=== PATIENT | female | born 2000 | race Two or more races ===

== ENCOUNTER 2024-03-20 10:32 | Outpatient (CLI) | payer OTHER | END 2024-03-20 10:37 | disposition home or self-care (01) | LOC: PRENATAL 10:32 | PROVIDERS: ATTEND Obstetrics & Gynecology Maternal & Fetal Medicine | DX: Z76.1 Encounter for health supervision and care of foundling (principal) ==

== ENCOUNTER 2024-05-06 07:58 | Outpatient (CLI) | payer OTHER | END 2024-05-06 07:59 | disposition home or self-care (01) | LOC: PRENATAL 07:58 | PROVIDERS: ATTEND Obstetrics & Gynecology Maternal & Fetal Medicine | DX: O44.00 Complete placenta previa NOS or without hemorrhage, unspecified trimester (principal); Z3A.21 21 weeks gestation of pregnancy ==

== ENCOUNTER 2024-07-15 09:03 | Outpatient (CLI) | payer OTHER | END 2024-07-15 09:07 | disposition home or self-care (01) | LOC: PRENATAL 09:03 | PROVIDERS: ATTEND Obstetrics & Gynecology Maternal & Fetal Medicine | DX: O26.849 Uterine size-date discrepancy, unspecified trimester (principal); O36.8199 Decreased fetal movements, unspecified trimester, other fetus; O36.5990 Maternal care for other known or suspected poor fetal growth, unspecified trimester, not applicable or unspecified; Z3A.31 31 weeks gestation of pregnancy ==

== ENCOUNTER 2024-07-21 09:38 | Outpatient (CLI) | payer OTHER ==
[2024-07-21] MEDS ORDERED: ADULT LOW DOSE81 M1 PO (13:35)
[2024-07-21] MEDS ORDERED: PRENATA CHEWAB1 EACH PO (13:35)
== END 2024-07-21 09:39 | disposition home or self-care (01) ==
LOC: PRENATAL 09:38
PROVIDERS: ATTEND Obstetrics & Gynecology Maternal & Fetal Medicine
DX: O36.5990 Maternal care for other known or suspected poor fetal growth, unspecified trimester, not applicable or unspecified (principal); O36.8199 Decreased fetal movements, unspecified trimester, other fetus; Z3A.33 33 weeks gestation of pregnancy

== ENCOUNTER 2024-07-21 13:27 | Inpatient (IN) | payer OTHER ==
[~2024-07-21] VITALS: Ht 149.9 cm; Wt 79.8 kg
[2024-07-21 12:39] VITALS: BP 127/84
[2024-07-21] MEDS ORDERED: ADULT LOW DOSE81 M1 PO (13:35)
[2024-07-21] MEDS ORDERED: PRENATA CHEWAB1 EACH PO (13:35)
[2024-07-21] MEDS ORDERED: BETAMETHASONE ACETATE,SOD PHOS 30 MG/5 ML ML ONE (13:43)
[2024-07-21] MEDS ORDERED: BETAMETHASONE ACETATE,SOD PHOS 30 MG/5 ML ML IM ONE (14:15)
[2024-07-21] MEDS ORDERED: RINGERS SOLUTION,LACTATED 1,000 ML IV SCH (14:30)
[2024-07-21 15:05] LABS: HEMATOCRIT 35.8 % (36.0-45.00); HEMOGLOBIN 12.2 g/dL (12.0-15.00); MEAN CELL VOLUME 85.9 fL (80.00-100.00); MEAN CORPUSCULAR HEMOGLOBIN 29.2 pg (27.00-32.0); PLATELET COUNT 158 K/uL (150-450); RED BLOOD COUNT 4.17 M/uL (4.00-6.00); RED CELL DISTRIBUTION WIDTH 13.1 % (11.5-14.5)
[2024-07-21 15:19] VITALS: BP 133/84
[2024-07-21 15:24] LABS: INR 0.94; PARTIAL THROMBOPLASTIN TIME 29.3 SECONDS (22.0-34.0); PROTHROMBIN TIME 10.3 SECONDS (9.0-11.5)
[2024-07-21 15:32] LABS: ALBUMIN 2.5 gm/dL (3.4-5.0); BILIRUBIN TOTAL 0.37 mg/dL (0.3-1.2); CALCIUM 8.4 mg/dL (8.5-10.1); CREATININE SERUM 0.75 mg/dL (0.55-1.02); GFR 93.41; GLOBULINA 3.3 G/DL (2.4-3.5); POTASSIUM 3.76 mEq/L (3.5-5.1); TOTAL PROTEIN 5.8 gm/dL (6.4-8.2)
[2024-07-21 16:36] LABS: PH,URINE 7.5 (5.0-8.0); URINE APPEARANCE Clear; URINE BILIRRUBIN Negative (NEGATIVE); URINE BLOOD Negative; URINE COLOR Yellow; URINE GLUCOSE Negative (NEGATIVE); URINE KETONE Negative (NEGATIVE); URINE LEUKOCYTE Large; URINE NITRATE Negative; URINE PROTEIN Negative (NEGATIVE)
[2024-07-21 16:40] LABS: URINE BACTERIA 1023.1 uL (0.0-1933); URINE EPITHELIAL CELLS 18.8 uL (0.0-38.8); URINE RBC 2.6 uL (0.0-20.8); URINE WBC 23.7 uL (0.0-23.2)
[2024-07-21 19:27] VITALS: BP 132/87
[2024-07-21 23:10] VITALS: BP 124/80
[2024-07-22 03:24] VITALS: BP 122/77
[2024-07-22 06:08] VITALS: BP 112/71; O2SAT 99
[2024-07-22 11:20] VITALS: BP 125/85
[2024-07-22] MEDS ORDERED: BETAMETHASONE ACETATE,SOD PHOS 30 MG/5 ML ML IM ONE (14:15)
[2024-07-22 15:17] VITALS: BP 124/87
[2024-07-22 19:25] VITALS: BP 132/85
[2024-07-22 23:16] VITALS: BP 110/71; O2SAT 98
[2024-07-22] MEDS ORDERED: CEFAZOLIN SODIUM 1,000 MG VIAL ONE (23:45)
[2024-07-23] MEDS ORDERED: CEFAZOLIN SODIUM 1,000 MG VIAL IV SCH (01:00)
[2024-07-23 03:40] VITALS: BP 113/72
[2024-07-23 06:20] VITALS: BP 115/69; O2SAT 98
[2024-07-23 11:30] VITALS: BP 130/85; O2SAT 97
== END 2024-07-23 12:37 | disposition home or self-care (01) | DRG 833 ==
LOC: LDR 13:27
PROVIDERS: ADMIT Obstetrics & Gynecology; ATTEND Obstetrics & Gynecology
PROC: 4A1HXCZ Monitoring of Products of Conception, Cardiac Rate, External Approach (ICD-10-PCS; principal; 2024-07-21)
PROC: BY4FZZZ Ultrasonography of Third Trimester, Single Fetus (ICD-10-PCS; 2024-07-23)
PROC: BY47ZZZ Ultrasonography of Fetal Umbilical Cord (ICD-10-PCS; 2024-07-23)
DX: O36.5930 Maternal care for other known or suspected poor fetal growth, third trimester, not applicable or unspecified (principal); O36.8130 Decreased fetal movements, third trimester, not applicable or unspecified; Z3A.33 33 weeks gestation of pregnancy

== ENCOUNTER 2024-07-27 08:43 | Outpatient (CLI) | payer OTHER ==
[~2024-07-27 08:43] MED LIST: ADULT LOW DOSE81 M1 PO; PRENATA CHEWAB1 EACH PO
== END 2024-07-27 08:44 | disposition home or self-care (01) ==
LOC: PRENATAL 08:43
PROVIDERS: ATTEND Obstetrics & Gynecology Maternal & Fetal Medicine
DX: O26.849 Uterine size-date discrepancy, unspecified trimester (principal); O36.5990 Maternal care for other known or suspected poor fetal growth, unspecified trimester, not applicable or unspecified; O36.8199 Decreased fetal movements, unspecified trimester, other fetus; Z3A.31 31 weeks gestation of pregnancy

== ENCOUNTER 2024-07-27 12:10 | Inpatient (IN) | payer OTHER ==
[~2024-07-27] VITALS: Ht 149.9 cm; Wt 79.8 kg
[2024-07-27 11:47] VITALS: BP 145/93
[2024-07-27] MEDS ORDERED: RINGERS SOLUTION,LACTATED 1,000 ML IV SCH (12:45)
[2024-07-27 12:55] LABS: URINE APPEARANCE Cloudy; URINE BILIRRUBIN Negative (NEGATIVE); URINE BLOOD NHT; URINE COLOR Yellow; URINE GLUCOSE Negative (NEGATIVE); URINE KETONE Negative (NEGATIVE); URINE LEUKOCYTE Large; URINE NITRATE Negative; URINE PROTEIN Trace (NEGATIVE); URINE UROBILINOGEN 0.2 E.U./dl
[2024-07-27 12:56] LABS: URINE BACTERIA 8094.1 uL (0.0-1933); URINE EPITHELIAL CELLS 180.8 uL (0.0-38.8); URINE RBC 7.5 uL (0.0-20.8); URINE WBC 422.2 uL (0.0-23.2)
[2024-07-27 13:00] LABS: HEMATOCRIT 37.1 % (36.0-45.00); HEMOGLOBIN 12.7 g/dL (12.0-15.00); MEAN CELL VOLUME 86.3 fL (80.00-100.00); MEAN CORPUSCULAR HEMOGLOBIN 29.5 pg (27.00-32.0); MEAN CORPUSCULAR HGB CONC 34.2 g/dl (32.0-36.0); PLATELET COUNT 153 K/uL (150-450); RED CELL DISTRIBUTION WIDTH 13.7 % (11.5-14.5)
[2024-07-27 13:15] LABS: INR 0.95; PARTIAL THROMBOPLASTIN TIME 26.8 SECONDS (22.0-34.0); PROTHROMBIN TIME 10.4 SECONDS (9.0-11.5)
[2024-07-27 13:37] LABS: URINE CAST 0.44 uL (0.0-1.40); URINE YEAST FEW /hpf
[2024-07-27 13:58] LABS: ALBUMIN 2.7 gm/dL (3.4-5.0); BILIRUBIN TOTAL 0.34 mg/dL (0.3-1.2); CREATININE SERUM 0.59 mg/dL (0.55-1.02); GFR 123.21; GLOBULINA 3.2 G/DL (2.4-3.5); POTASSIUM 4.25 mEq/L (3.5-5.1); TOTAL PROTEIN 5.9 gm/dL (6.4-8.2)
[2024-07-27] MEDS ORDERED: ERYTHROMYCIN BASE OPHT 1GM EACH TUBE OP ONE (14:01)
[2024-07-27] MEDS ORDERED: OXYTOCIN 10 UNITS/ML VIAL ONE (14:01)
[2024-07-27] MEDS ORDERED: CEFAZOLIN SODIUM 1,000 MG VIAL ONE (15:53)
[2024-07-27] MEDS ORDERED: MORPHINE SULFATE 4 MG/ML CARTRIDGE IV SCH (17:00)
[2024-07-27 20:45] VITALS: BP 136/86
[2024-07-28 01:00] VITALS: BP 136/88
[2024-07-28 05:00] VITALS: BP 123/81
[2024-07-28] MEDS ORDERED: OxyCODONE HCL 5 MG TABLET (ROXICODONE) PO PRN (05:00)
[2024-07-28] MEDS ORDERED: ACETAMINOPHEN 325 MG TABLET PO PRN (05:00)
[2024-07-28 07:08] LABS: HEMATOCRIT 33.7 % (36.0-45.00); HEMOGLOBIN 11.7 g/dL (12.0-15.00); MEAN CELL VOLUME 85.6 fL (80.00-100.00); MEAN CORPUSCULAR HEMOGLOBIN 29.7 pg (27.00-32.0); MEAN CORPUSCULAR HGB CONC 34.7 g/dl (32.0-36.0); RED BLOOD COUNT 3.94 M/uL (4.00-6.00); RED CELL DISTRIBUTION WIDTH 13.4 % (11.5-14.5)
[2024-07-28 07:23] LABS: PLATELET COUNT 143 K/uL (150-450)
[2024-07-28 08:43] VITALS: BP 137/89; O2SAT 98
[2024-07-28] MEDS ORDERED: DOCUSATE SODIUM 100MG CAP PO SCH (09:00)
[2024-07-28] MEDS ORDERED: SIMETHICONE 125 MG CAPSULE PO SCH (09:00)
[2024-07-28] MEDS ORDERED: PNV,CALCIUM 72/IRON/FOLIC ACID 1 TAB TABLET PO SCH (09:00)
[2024-07-28 13:42] VITALS: BP 120/80
[2024-07-28] MEDS ORDERED: CEFAZOLIN SODIUM 1,000 MG VIAL IV NR (13:45)
[2024-07-28 16:00] VITALS: BP 141/85
[2024-07-29 00:24] VITALS: BP 130/70
[2024-07-29 08:29] VITALS: BP 123/82; O2SAT 100
[2024-07-29 13:14] VITALS: BP 115/79; O2SAT 100
[2024-07-29 18:19] VITALS: BP 121/80
[2024-07-30] VITALS: BP 129/84
[2024-07-30 08:48] VITALS: BP 123/84
[2024-07-30 10:05] VITALS: BP 123/84
[2024-07-30 16:09] VITALS: BP 124/70
== END 2024-07-30 17:19 | disposition home or self-care (01) | DRG 786 ==
LOC: LDR 12:10 → O/R 12:10 → OB/GYN 12:10 → O/R 15:17 → OB/GYN 17:52
PROVIDERS: ADMIT Obstetrics & Gynecology; ATTEND Obstetrics & Gynecology
PROC: 4A1HXCZ Monitoring of Products of Conception, Cardiac Rate, External Approach (ICD-10-PCS; 2024-07-27)
PROC: 10D00Z1 Extraction of Products of Conception, Low, Open Approach (ICD-10-PCS; principal; 2024-07-27 14:00)
DX: O36.5930 Maternal care for other known or suspected poor fetal growth, third trimester, not applicable or unspecified (principal); O60.14X0 Preterm labor third trimester with preterm delivery third trimester, not applicable or unspecified; O69.89X0 Labor and delivery complicated by other cord complications, not applicable or unspecified; Z3A.34 34 weeks gestation of pregnancy; Z37.0 Single live birth